=== PATIENT | male | born 1995 | race African-American/Black ===

== ENCOUNTER 2022-02-19 20:23 | Emergency (ER) | payer SELFPAY ==
[~2022-02-19] VITALS: Ht 193 cm; Wt 81.6 kg
[2022-02-20 01:30] VITALS: BP 110/60
== END 2022-02-20 01:52 | disposition home or self-care (01) ==
LOC: ER 20:23
DX: S00.451A Superficial foreign body of right ear, initial encounter (principal); X58.XXXA Exposure to other specified factors, initial encounter; Y93.89 Activity, other specified; Y92.89 Other specified places as the place of occurrence of the external cause; Y99.8 Other external cause status